=== PATIENT | female | born 2000 | race Caucasian/White ===

== ENCOUNTER 2020-05-10 04:59 | Inpatient (IN) | payer OTHER ==
[~2020-05-10] VITALS: Ht 317.5 cm; Wt 56.7 kg
[2020-05-10 06:09] LABS: BASOPHILS % 0.6 % (0.0-2.0); HEMATOCRIT. 41.4 % (36.0-48.0); HEMOGLOBIN. 13.7 g/dL (12.0-16.0); LYMPHOCYTES % 7.8 % (20.0-50.0); MEAN CORPUSCULAR HEMOGLOBIN 27.7 pg (28.0-32.0); MEAN CORPUSCULAR VOLUME 84.2 fL (81.0-99.0); MEAN PLATELET VOLUME 9.5 fl (7.4-10.4); MONOCYTES % 2.6 % (2.0-8.0); PLATELET 398 x1000/uL (130-400); RED BLOOD CELL COUNT 4.92 mill/uL (4.2-5.4)
[2020-05-10 06:16] LABS: CHLORIDE 106 mEq/L (98-107)
[2020-05-10 06:26] LABS: INR 1.1; PROTHROMBIN TIME 11.5 sec (9.6-11.0)
[2020-05-10 06:40] LABS: HCG SCREEN NEGATIVE
[2020-05-10] MEDS ORDERED: ONDANSETRON HCL 4MG/2ML INJ IV ONE (07:00)
[2020-05-10] MEDS ORDERED: MORPHINE SULFATE 4 MG/ML CPJ (NOT FOR IM USE) IV ONE (07:00)
[2020-05-10 07:15] LABS: CLARITY URINE CLOUDY (CLEAR); COLOR URINE YELLOW (YELLOW); KETONES URINE TRACE (NEGATIVE); LEUKOCYTE ESTERASE URINE 1+ (NEGATIVE); NITRITE URINE POSITIVE (NEGATIVE); OCCULT BLOOD URINE NEGATIVE (NEGATIVE); PROTEIN URINE TRACE (NEGATIVE); SPECIFIC GRAVITY URINE 1.023 (1.005-1.030); UROBILINOGEN URINE 0.2 E.U./dL (0.2-1.0)
[2020-05-10] MEDS ORDERED: ACETAMINOPHEN 325MG TABLET PO PRN (12:00)
[2020-05-10 12:22] VITALS: BP 107/70
[2020-05-10 12:37] VITALS: BP 107/70
[2020-05-10] MEDS: CEFTRIAXONE 1,000 MG in DEXTROSE 5% WATER 50 ML IV SCH (13:36)
[2020-05-10] MEDS: HYDROCODONE/ACETAMINOPHEN 10/325MG TABLET PO PRN (14:31)
[2020-05-10] MEDS: ONDANSETRON HCL 4MG/2ML INJ IV PRN (19:00)
[2020-05-10 20:00] VITALS: BP 113/71
[2020-05-11] VITALS: BP 115/78
[2020-05-11] MEDS: HYDROCODONE/ACETAMINOPHEN 10/325MG TABLET PO PRN ×2 (00:12→10:30)
[2020-05-11] MEDS: ONDANSETRON HCL 4MG/2ML INJ IV PRN ×3 (00:15→22:18)
[2020-05-11 04:00] VITALS: BP 92/58
[2020-05-11 08:00] VITALS: BP 93/46
[2020-05-11 10:27] LABS: BASOPHILS % 1.2 % (0.0-2.0); EOSINOPHILS % 1.5 % (0.0-5.0); HEMATOCRIT. 38.8 % (36.0-48.0); HEMOGLOBIN. 12.5 g/dL (12.0-16.0); LYMPHOCYTES % 26.5 % (20.0-50.0); MEAN CORPUSCULAR HEMOGLOBIN 27.5 pg (28.0-32.0); MEAN CORPUSCULAR VOLUME 85.2 fL (81.0-99.0); MEAN PLATELET VOLUME 9.4 fl (7.4-10.4); MONOCYTES % 5.2 % (2.0-8.0); NEUTROPHILS % 65.6 % (40.0-76.0); PLATELET 321 x1000/uL (130-400); RED BLOOD CELL COUNT 4.55 mill/uL (4.2-5.4); RED CELL DISTRIBUTION WIDTH 20.4 % (11.6-14.6)
[2020-05-11 10:55] LABS: CHLORIDE 101 mEq/L (98-107)
[2020-05-11 11:56] VITALS: BP 111/61
[2020-05-11] MEDS: CEFTRIAXONE 1,000 MG in DEXTROSE 5% WATER 50 ML IV SCH (13:39)
[2020-05-11 16:02] VITALS: BP 96/48
[2020-05-11 20:00] VITALS: BP 106/59
[2020-05-12] VITALS: BP 106/57
[2020-05-12 04:00] VITALS: BP 102/55
[2020-05-12] MEDS: ONDANSETRON HCL 4MG/2ML INJ IV PRN (07:41)
[2020-05-12 07:54] VITALS: BP 101/54
[2020-05-12] MEDS: HYDROCODONE/ACETAMINOPHEN 10/325MG TABLET PO PRN (08:37)
[2020-05-12] MEDS ORDERED: LEVO500T89 MT (11:47)
[2020-05-12 12:04] VITALS: BP 108/52
[2020-05-12 12:45] VITALS: BP 101/54
== END 2020-05-12 13:03 | disposition home or self-care (01) | DRG 720 ==
LOC: ER 04:59 → 4WST 08:44 → EDBEDREQ 08:55 → EDBEDREQTM 08:55 → ENRESERV 09:40
PROVIDERS: ADMIT Internal Medicine; ATTEND Internal Medicine
DX: A41.9 Sepsis, unspecified organism (principal); N39.0 Urinary tract infection, site not specified; K57.30 Diverticulosis of large intestine without perforation or abscess without bleeding
CPT/HCPCS: 36415; 74176; 80048; 80053; 81003; 84703; 85025; 93005; 99285; J0696; J2270; J2405; J7060